=== PATIENT | male | born 1965 | race Caucasian/White ===

== ENCOUNTER 2018-10-20 14:54 | Observation (INO) ==
--- NOTE | 2018-10-20 16:13 | Emergency Department Note ---
Disposition Clinical Impression: Deep vein thrombosis of lower extremity Qualifiers: Affected thrombotic vein of extremity: unspecified vein of extremity Chronicity: acute Laterality: left Qualified Code(s): I82.402 - Acute embolism and thrombosis of unspecified deep veins of left lower extremity Disposition: Admitted As Inpatient Condition: Good Time of Disposition: 18:01 Extremity Problem HPI - General Chief complaint: ED Extremity Problem,Nontraumatic Stated complaint: DVT Time Seen by Provider: 10/20/18 15:05 Source: patient, family Limitations: no limitations Nursing Notes Reviewed: Yes Vital Signs Reviewed: Yes - History of Present Illness HPI Narrative: 53-year-old male history of diabetes presents emergency department with left leg swelling. He reports over the weekend past 3 days, he noticed increased swelling to his left leg. He had a knee surgery performed earlier this year and last week return from a plane ride from [place]. An outpatient ultrasound was performed which showed left leg deep vein thrombosis. He was sent here from his orthopedic surgeon to be evaluated and possible admission. He denies history of blood clots and malignancy. He denies any fever, chest pain, shortness of breath, abdominal pain nausea vomiting. He denies any G.I. bleed symptoms such as bloody stool, black tarry stool, hemoptysis or hematemesis. Pt Subjective Complaint: extremity pain, extremity swelling Pain Scale: 3 - Related Data Home Medications Medication Instructions Recorded Confirmed Insulin NPH Hum/Reg Insulin Hm 40 unit SQ BID 10/20/18 10/20/18 [Humulin 70-30 Vial] Lisinopril [Zestril] 40 mg PO DAILY 10/20/18 10/20/18 Meloxicam [Mobic] 7.5 mg PO BID 10/20/18 10/20/18 Metformin HCl 250 mg PO BID 10/20/18 10/20/18 Allergies Allergy/AdvReac Type Severity Reaction Status Date / Time No Known Allergies Allergy Verified 08/27/16 10:43 All systems ED: reviewed and negative except as stated. Review of Systems: As Per HPI Constitutional: Denies: fever ENT ED: Denies: congestion Cardiovascular: Denies: chest pain Respiratory: Denies: cough, dyspnea Gastrointestinal: Denies: abdominal pain, nausea, vomiting Genitourinary: Denies: dysuria Musculoskeletal: Reports: arthralgia. Denies: back pain Integumentary: Denies: rash, abrasion Neurological: Denies: headache, weakness, numbness Psychiatric: Denies: anxiety Endocrine: Reports: fatigue Past Medical History - Past Medical History Attestation: Yes The following information was validated with the patient. Source: patient Medical history: Reports: diabetes, hyperlipidemia, hypertension Psychiatric history: Reports: no psych history - Social History Smoking Status: Never smoker Smokeless Tobacco Status: Yes Alcohol use: Reports: occasionally Drug use: Reports: none Physical Exam - General Limitations: no limitations General appearance: alert, in no apparent distress - Head Head exam: atraumatic, normocephalic, normal inspection - Eye Eye exam: Present: normal appearance, PERRL, EOMI - ENT ENT exam: normal exam, normal oropharynx, mucous membranes moist - Neck Neck exam: Present: normal inspection, full ROM, trachea midline - Chest Chest inspection: Present: normal inspection, symmetric chest wall rise - Respiratory Respiratory exam: Present: normal lung sounds bilaterally - Cardiovascular Cardiovascular exam: Present: regular rate, normal rhythm, normal heart sounds. Absent: systolic murmur, diastolic murmur - Expanded Cardiovascular Exam Peripheral pulses: 1+: dorsalis pedis (L), 2+: radial (R), radial (L), dorsalis pedis (R) - Abdominal Exam Abdominal exam: Present: soft, Non-Tender, normal bowel sounds. Absent: tenderness, distention, guarding, rebound, rigidity - Extremities Exam Extremities exam: Present: full ROM, pedal edema (Left leg), calf tenderness, other (Asymmetrical swelling to the left lower leg). Absent: tenderness - Back Exam Back exam: Present: normal inspection, full ROM. Absent: tenderness - Neurological Exam Neurological exam: Present: alert, oriented X3 - Psychiatric Psychiatric exam: Present: normal affect, normal mood - Skin Skin exam: Present: warm, dry, intact, normal color. Absent: rash, cyanosis, diaphoresis Course Course Narrative: Review of the patient Doppler ultrasound there is extensive acute thrombus extending from the greater saphenous up to the distal iliac. There is no evidence of phelgmasia alba or dolens. Will check some basic labs in consideration for outpatient treatment for the deep vein thrombosis. He has no respiratory symptoms and does not warrant CT imaging at this time to evaluate for pulmonary embolism. - Reevaluation(s) Reevaluation #1: Patient has some underlying renal insufficiency that appears new. Will initiate Eliquis and admit with recommendation from vascular surgery to ensure improve ment and monitoring of his symptoms. Impression is deep vein thrombosis. - Consultations Consultation #1: Spoke with the patient's primary care provider Dr. Rea who is familiar with the patient and prefers Eliquis for anticoagulation. We will touch base with the vascular surgeon in terms of the extensive nature of the acute thrombus. If he is stable for discharge home he will follow up with his primary care provider at his request. He has a scheduled appointment next Saturday at 9:30 AM. Time: 16:33 Consultation #2: Discuss the findings with the on-call vascular surgeon Dr. Casillas who agrees th at this is an extensive acute thrombus. States it would not be unreasonable to admit the patient to evaluate for symptom improvement. After discussion with the primary care provider Eliquis would be an appropriate medication. Patient continues to have good capillary refill and distal pulses in the left foot. Time: 17:25 Consultation #3: Spoke with on-call hospitalist maria isabel Ly to admit for DVT. No further orders at this time Time: 17:53 Vital Signs Temperature 98.6 F 10/20/18 15:07 Pulse Rate 93 10/20/18 15:07 Respiratory Rate 16 10/20/18 15:07 Blood Pressure 94/62 10/20/18 15:07 O2 Sat by Pulse Oximetry 97 10/20/18 15:07 Temperature 98.6 F 10/20/18 15:18 Pulse Rate 87 10/20/18 16:25 Respiratory Rate 12 10/20/18 16:25 Blood Pressure 104/74 10/20/18 16:25 O2 Sat by Pulse Oximetry 97 10/20/18 16:25 Oxygen Delivery Oxygen Delivery Room Air Extremity Problem, Nontraumati - MDM Narrative Medical decision making narrative: Patient was discussed with my attending physician who agrees with ED management and final disposition. They independently evaluated the patient. Please refer to their attestation to this encounter for additional information. This note was generated by [employer] voice recognition software and as a result grammatical or spelling errors may occur using this program. - Medical Records Medical records reviewed: Yes I reviewed the patient's medical records. - Lab Data Lab results reviewed: Yes I reviewed the patient's lab results. Result diagrams: 10/20/18 16:15 10/20/18 16:15 Lab Results 10/20/18 10/20/18 10/20/18 Range/Units 16:15 16:15 16:15 WBC 12.3 H (4.3-11.1) K/mcL RBC 4.46 (4.19-5.50) M/mcL Hgb 13.9 (12.9-16.9) g/dL Hct 41.3 (37.5-50.1) % MCV 92.6 (83.0-100.0) fL MCH 31.2 (28.0-33.3) pg MCHC 33.7 (31.6-35.5) g/dL RDW 12.2 (11.5-14.5) % Plt Count 196 (140-400) K/mcL MPV 9.1 L (9.4-12.4) fL Immature Gran % 2.0 (0-4) % Seg Neutrophils % 66.4 % Lymphocytes % 19.0 % Monocytes % 10.5 % Eosinophils % 1.5 % Basophils % 0.6 % Neutrophils # 8.2 (1.6-8.9) K/mcL Lymphocytes # 2.3 (0.6-4.6) K/mcL Monocytes # 1.3 (0.0-1.3) K/mcL Eosinophils # 0.2 (0.0-0.6) K/mcL Basophils # 0.1 (0.0-0.2) K/mcL PT 11.3 (9.4-12.1) Seconds INR 1.0 APTT 26.5 (26.0-36.0) Seconds Sodium 137 (136-145) mEq/L Potassium 4.2 (3.5-5.1) mEq/L Chloride 105 (98-107) mEq/L Carbon Dioxide 25 (23-29) mEq/L BUN 29 H (6-20) mg/dL Creatinine 1.76 H (0.70-1.30) mg/dL Est GFR ( Amer) 49 L (> 60) Est GFR (Non-Af Amer) 40 L (> 60) BUN/Creatinine Ratio 16 (6-26) Glucose 135 H (70-105) mg/dL Calculated Osmolality 292 (280-300) Calcium 9.3 (8.6-10.3) mg/dL - Radiology Data Radiology results reviewed: Yes I reviewed the patient's radiology results. LE Venous Duplex Patient Name: Cabrera Nava Order Number: [id number] Procedure Date: 10/20/2018 Date: 1965 Age: 53 yrs Gender: Male Location: [facility] OP Room #: Accounting Professor: Lila Evans RDCS, ZOYA Referring MD: DO Cari Godinez MD: Jordan Monge MD , FACS Primary Indications: Left Leg Swelling Secondary Indications: Risk Factors Yes/No Hx of DVT No Anticoagulants No Trauma to Veins No Impressions: Lower extremity abnormal deep exam: left iliac through superficial femoral vein demonstrates acute thrombosis. Lower extremity abnormal superficial exam: left great saphenousvein demonstrates acute thrombosis. Right lower extremity: normal contralateral exam. Recommendations: After imaging the patient was admitted to the hospital. Test completed on 10/20/2018 at 2:14:00 pm. Critical findings reported to Yadira Graves LPN by phone at 2:16:00 pm on 10/20/2018 by Lila Evans RDCS, RVT. Findings Venous Duplex Results: Right: Venous imaging of the lower extremity reveals full patency and normal vessel compressibility of the right common femoral. Doppler signals in the evaluated veins were normal. Left: Venous imaging of the lower extremity reveals full patency and normal vessel compressibility of the left popliteal, left posterior tibial, left peroneal and left lesser saphenous. Doppler signals in the evaluated veins were normal. There is an acute occlusive thrombus seen in the left distal iliac. It demonstrates an incompressible vein. Flow was absent and it did not augment. There is an acute occlusive thrombus seen in the left common femoral. It demonstrates an incompressible vein. Flow was absent and it did not augment. There is an acute occlusive thrombus seen in the left proximal superficial femoral. It demonstrates an incompressible vein. Flow was absent and it did not augment. There is an acute occlusive thrombus seen in the left great saphenous. It demonstrates an incompressible vein. Flow was absent and it did not augment. Prior Study: No prior study available for comparison. After imaging the patient was admitted to the hospital. Test completed on 10/20/2018 at 2:14:00 pm. Critical findings reported to Yadira Graves LPN by phone at 2:16:00 pm on 10/20/2018 by Lila Evans RDCS, RVT. Lower Extremity Venous Duplex Side Vein Compress Spontaneous Flow Augment Diameter (cm) Depth (cm) Left Distal Iliac None no Absent no Left Common Femoral None no Absent no Left Superficial Femoral None no Absent no Left Popliteal Normal Yes Phasic Yes Left Posterior Tibial Normal Yes Phasic Yes Left Peroneal Normal Yes Phasic Yes Left Great Saphenous None no Absent no Left Lesser Saphenous Normal Yes Phasic Yes Right Common Femoral Normal Yes Phasic Yes Updated by Jordan Monge MD, FACS on 10/20/2018 3:16:13 PM Jordan Monge MD electronically signed on 10/20/2018 3:16:36 PM with status of Final Attestation Statement - Attestation Attestation: I, Cabrera Lai DO, examined this patient [id number] and my medical decision-making was reviewed with Asael Genao DO , Resident Physician. I agree with the documented findings, disposition and treatment plan as described except to the extent set forth below. Please see my progress notes for details.
--- NOTE | 2018-10-20 16:25 | Emergency Department Note ---
Disposition Clinical Impression: Deep vein thrombosis of lower extremity Disposition: Admitted As Inpatient Condition: Good Referrals: Deb Perry MD [Primary Care Provider] - Time of Disposition: 17:26 General Adult HPI - General Chief complaint: ED Extremity Problem,Nontraumatic Stated complaint: DVT Time Seen by Provider: 10/20/18 15:05 Source: patient, family Limitations: no limitations - History of Present Illness Pain Scale: 3 - Related Data Home Medications Medication Instructions Recorded Confirmed Insulin NPH Hum/Reg Insulin Hm 40 unit SQ BID 10/20/18 10/20/18 [Humulin 70-30 Vial] Lisinopril [Zestril] 40 mg PO DAILY 10/20/18 10/20/18 Meloxicam [Mobic] 7.5 mg PO BID 10/20/18 10/20/18 Metformin HCl 250 mg PO BID 10/20/18 10/20/18 Allergies Allergy/AdvReac Type Severity Reaction Status Date / Time No Known Allergies Allergy Verified 08/27/16 10:43 Past Medical History - Past Medical History Medical history: Reports: diabetes, hyperlipidemia, hypertension Psychiatric history: Reports: no psych history - Social History Smoking Status: Never smoker Smokeless Tobacco Status: Yes Alcohol use: Reports: occasionally Drug use: Reports: none Physical Exam - General Limitations: no limitations General appearance: alert Course Vital Signs Temperature 98.6 F 10/20/18 15:07 Pulse Rate 93 10/20/18 15:07 Respiratory Rate 16 10/20/18 15:07 Blood Pressure 94/62 10/20/18 15:07 O2 Sat by Pulse Oximetry 97 10/20/18 15:07 Temperature 98.6 F 10/20/18 15:18 Pulse Rate 99 10/20/18 15:18 Respiratory Rate 16 10/20/18 15:18 Blood Pressure 90/67 10/20/18 15:18 O2 Sat by Pulse Oximetry 98 10/20/18 15:18 Oxygen Delivery Oxygen Delivery Room Air Attestation Statement - Attestation Attestation: I, Cabrera Lai DO, examined this patient [id number] and my medical decision-making was reviewed with Asael Genao DO , Resident Physician. I agree with the documented findings, disposition and treatment plan as described except to the extent set forth below. Please see my progress notes for details. 53-year-old male presents to the emergency room for evaluation of left lower extremity swelling from the hip down to the foot. Patient has been noticing the symptoms will last several days over a week. He was seen by orthopedic physician had an x-ray ordered as well as a Doppler study. The Doppler study was positive for DVT. The orthopedic physician did not have the ability to review the imaging did discuss possible admission versus anticoagulation therapy. Patient on arrival here is denying chest pain, shortness of breath, nausea vomiting or diarrhea. Denies any fevers or chills. Denies any falls trauma or injury. He has never had anything like this before. He does stand for extended periods of time at work. The reason that he noticed the swelling is that over the last couple days while he was at work the pain was progressively worse throughout the day the longer he stood. Patient does have what appears to be superficial femoral DVT along with greater saphenous vein involvement extending up into the common femoral vein just distal to the iliacs. Discussion was had with the on-call vascular surgeon Dr. Casillas for recommendations considering the size of the clot. He felt that the patient could either discharge home at their discretion or could be admitted for continued medical management and observation. We will collect basic labs here. Patient will be provided with first dose of Eliquis. We will continue to monitor closely. Patient is otherwise in no distress outside of the swelling. Physical exam is otherwise unremarkable. Patient has clear lungs heart is regular. Abdomen is soft. He does have swelling from the hip down to the foot. He has palpable DP and PT pulses that are symmetrical bilaterally. No acute signs of occlusive related etiology at this time. Patient will be admitted once the laboratory workup is established. See detailed documentation of the physical exam, medical intervention, medical decision-making and disposition in the resident physician's note. 1715 Patient is electively decided to be admitted to the hospital. First dose of Eliquis will be given with attempted bridging patient for home. Observation status will be completed to monitor the patient Dr. Peterson reviewed the case and agreed with the treatment course. We also contacted the primary care provider Dr. Khan and she will follow-up with the patient on Saturday of next week. Patient will be admitted for continuation of care. No other acute issues at this time. Patient will be monitored here in the emergency room until admission process has been established patient does have new renal insufficiency and will be provided with fluid hydration while here in the hospital
[2018-10-20 16:27] LABS: Basophils # 0.1 K/mcL (0.0-0.2); Basophils % 0.6 %; Eosinophils # 0.2 K/mcL (0.0-0.6); Eosinophils % 1.5 %; Hematocrit 41.3 % (37.5-50.1); Hemoglobin 13.9 g/dL (12.9-16.9); Lymphocytes # 2.3 K/mcL (0.6-4.6); Mean Corpuscular HGB Conc 33.7 g/dL (31.6-35.5); Mean Corpuscular Hemoglobin 31.2 pg (28.0-33.3); Mean Corpuscular Volume 92.6 fL (83.0-100.0); Mean Platelet Volume 9.1 fL (9.4-12.4); Monocytes # 1.3 K/mcL (0.0-1.3); Monocytes % 10.5 %; Neutrophils # 8.2 K/mcL (1.6-8.9); Platelet Count 196 K/mcL (140-400); Red Blood Count 4.46 M/mcL (4.19-5.50); Red Cell Distribution Width 12.2 % (11.5-14.5); Segmented Neutrophils % 66.4 %
[2018-10-20 16:35] LABS: Prothrombin Time 11.3 Seconds (9.4-12.1)
[2018-10-20 16:37] LABS: Activated Partial Thrombo Time 26.5 Seconds (26.0-36.0)
[2018-10-20 16:44] LABS: Calcium 9.3 mg/dL (8.6-10.3); Potassium 4.2 mEq/L (3.5-5.1)
[2018-10-20] MEDS ORDERED: Apixaban 5 MG TABLET PO ONE (17:16)
[2018-10-20 17:28] LABS: Heparin anti-factor XA UFH 0.04 IU/mL (0.30-0.70)
[2018-10-20] MEDS: 0.9 % Sodium Chloride 1,000 ML IVC SCH (17:44)
[2018-10-20] MEDS ORDERED: *HR* HYDROcodone/Acet 5/325 mg TABLET PO ONE (18:01)
[2018-10-20] MEDS ORDERED: Naloxone 0.4 MG/ML INJ IVP PRN (18:07)
[2018-10-20] MEDS ORDERED: *HR* HYDROcodone/Acet 5/325 mg TABLET PO PRN (18:10)
--- NOTE | 2018-10-20 18:17 | Internal Med History&Physical ---
Date of Encounter: 10/20/18 Time of Encounter: 18:13 Internal Medicine - H&P: HPI Chief complaint: LLE swelling, pain and Confirmed dx of DVT Admitted From: Home Plans for Post Hospital Care: Home History of present illness: Mr. Nava is a 53 year old male with a PMH of HTN, HLD, & DM. He presents today to [facility] with LLE swelling and mild pain x 3 days. He had a venous doppler yesterday which revealed an extensive DVT. He admits to recent airline travel. Denies any leg trauma, malignancy, h/o DVT's or clotting disorders. Additionally, he denies fevers, chills, dyspnea, chest pain, abdominal pain, N/V/D, hemoptysis, hematemesis, weight-loss, night sweats or fatigue. He has been taking NSAIDS BID PRN for discomfort. Workup in the ED reveals and LUISITO as well with a Scr OF 1.76; no prior h/o CKD. He is being admitted overnight to monitor given the extensive clot burden. Past Med Surg Social Fam HX - Past Medical History Medical history: diabetes, hyperlipidemia, hypertension Psychiatric history: no psych history - Past Surgical History Additional surgical history: fx jaw repair. hemorrhoid. L knee April 2018 - Social History Smoking Status: Never smoker Smokeless Tobacco Status: Yes Alcohol use: occasionally Drug use: none - Family History Father Hx Family Cardiac Disorders: Yes Internal Medicine - H&P: Meds Insulin NPH Hum/Reg Insulin Hm [Humulin 70-30 Vial] 40 unit SQ BID 10/20/18 [History] Lisinopril [Zestril] 40 mg PO DAILY 10/20/18 [History] Meloxicam [Mobic] 7.5 mg PO BID 10/20/18 [History] Metformin HCl 250 mg PO BID 10/20/18 [History] Allergy/AdvReac Type Severity Reaction Status Date / Time No Known Allergies Allergy Verified 08/27/16 10:43 All Systems PM: A 10-system review of systems was performed and is negative for pertinent findings except as documented above in the HPI. Review of systems: REVIEW OF SYSTEMS GENERAL: Negative for any nausea, vomiting, fevers, chills, or weight loss. NEUROLOGIC: Negative for any blurry vision, blind spots, double vision, facial asymmetry, dysphagia, dysarthria, hemiparesis, hemisensory deficits, vertigo, ataxia. HEENT: Negative for any head trauma, neck trauma, neck stiffness, photophobia, p honophobia, sinusitis, rhinitis. CARDIAC: Negative for any chest pain, dyspnea on exertion, palpitations, irregular heartbeat. Positive for LLE swelling PULMONARY: Negative for any shortness of breath, wheezing, cough GASTROINTESTINAL: Negative for any abdominal pain, nausea, vomiting GENITOURINARY: Negative for any dysuria, hematuria, incontinence. INTEGUMENTARY: Negative for any rashes, cuts, insect bites. MUSCULOSKELETAL: LLE swelling and pain, LLE feels cool - Constitutional Vitals: Temp Pulse Resp BP Pulse Ox 98.6 F 87 12 104/74 97 10/20/18 15:18 10/20/18 16:25 10/20/18 16:25 10/20/18 16:25 10/20/18 16:25 General appearance: Present: A&O X 3 Exam: PHYSICAL EXAMINATION: GENERAL: NAD, and O 3 HEENT: Head is normocephalic and atraumatic. PERRLA LUNGS: Clear to auscultation B/L AP and L. HEART: RRR, S1, S2 without murmurs, rubs or gallops. ABDOMEN: Soft, nontender, and nondistended. Positive bowel sounds. No hepatosplenomegaly was noted. EXTREMITIES: RLE WNL, LLE Without any cyanosis, distal circulation remains intact, blanchable with good cap refill; LLE is swollen and non pitting and cool to the touch NEUROLOGIC: Cranial nerves II through XII are grossly intact. SKIN: No ulceration or induration present. Internal Med - H&P Results - Labs CBC & Chem 7: 10/20/18 16:15 10/20/18 16:15 Labs: Short CBC 10/20/18 Range/Units 16:15 WBC 12.3 H (4.3-11.1) K/mcL Hgb 13.9 (12.9-16.9) g/dL Hct 41.3 (37.5-50.1) % Plt Count 196 (140-400) K/mcL Neutrophils # 8.2 (1.6-8.9) K/mcL BMP 10/20/18 16:15 Sodium 137 Potassium 4.2 Chloride 105 Carbon Dioxide 25 BUN 29 H Creatinine 1.76 H Glucose 135 H Calcium 9.3 - Impressions Left: Venous imaging of the lower extremity reveals full patency and normal vessel compressibility of the left popliteal, left posterior tibial, left peroneal and left lesser saphenous. Doppler signals in the evaluated veins were normal. There is an acute occlusive thrombus seen in the left distal iliac. It demonstrates an incompressible vein. Flow was absent and it did not augment. There is an acute occlusive thrombus seen in the left common femoral. It demonstrates an incompressible vein. Flow was absent and it did not augment. There is an acute occlusive thrombus seen in the left proximal superficial femoral. It demonstrates an incompressible vein. Flow was absent and it did not augment. There is an acute occlusive thrombus seen in the left great saphenous. It demonstrates an incompressible vein. Flow was absent and it did not augment. - Assessment and plan (1) Deep vein thrombosis of lower extremity Current Visit: Yes Status: Acute Assessment and plan: 3 day history of left lower extremity swelling and mild pain evaluated outpatient with venous doppler with findings of extensive DVT; findings as follows No prior h/o DVT; He admits to recent travel with flights to and from [place] Start on Eliquis 10mg BID; will need a total of 10mg BID x7 days then 5MG thereafter Given extensive nature of DVT admit for observation for monitoring Left: Venous imaging of the lower extremity reveals full patency and normal vessel compressibility of the left popliteal, left posterior tibial, left peroneal and left lesser saphenous. Doppler signals in the evaluated veins were normal. There is an acute occlusive thrombus seen in the left distal iliac. It demonstrates an incompressible vein. Flow was absent and it did not augment. There is an acute occlusive thrombus seen in the left common femoral. It demonstrates an incompressible vein. Flow was absent and it did not augment. There is an acute occlusive thrombus seen in the left proximal superficial femoral. It demonstrates an incompressible vein. Flow was absent and it did not augment. There is an acute occlusive thrombus seen in the left great saphenous. It demonstrates an incompressible vein. Flow was absent and it did not augment. Qualifiers: Affected thrombotic vein of extremity: unspecified vein of extremity Chronicity: acute Laterality: left Qualified Code(s): I82.402 - Acute embolism and thrombosis of unspecified deep veins of left lower extremity (2) Diabetes Current Visit: Yes Status: Acute Assessment and plan: Continue home insulin 70/30 BID and metformin AC/HS FSBG Diabetic diet Qualifiers: Diabetes mellitus type: type 2 Diabetes mellitus alf insulin use: with alf use Diabetes mellitus complication status: with unspecified complications Qualified Code(s): E11.8 - Type 2 diabetes mellitus with unspecified complications; Z79.4 - half-way (current) use of insulin (3) HTN (hypertension) Current Visit: Yes Status: Acute Assessment and plan: Reports a h/o HTN takes IRVING I at home; holding with LUISITO BP stable, monitor Qualifiers: Hypertension type: unspecified Qualified Code(s): I10 - Essential (primary) hypertension (4) Acute kidney injury Current Visit: Yes Status: Acute Assessment and plan: no prior h/o CKD presented with LUISITO etiology unclear holding NSAIDS, and IRVING I 0.9% NS at 125ml/hr x3 liters avoid nephrotoxins monitor renal function - Time Spent With Patient Total time spent is greater than 50% in coordination of care (as documented) at patient's floor/unit and/or counseling patient: less than 15 minutes
[2018-10-20] MEDS: *HR* Metformin 500 MG TABLET PO SCH (21:36)
[2018-10-21] MEDS: 0.9 % Sodium Chloride 1,000 ML IVC SCH (01:44)
[2018-10-21 04:29] LABS: Hematocrit 37.2 % (37.5-50.1); Hemoglobin 12.6 g/dL (12.9-16.9); Mean Corpuscular HGB Conc 33.9 g/dL (31.6-35.5); Mean Corpuscular Hemoglobin 31.6 pg (28.0-33.3); Mean Corpuscular Volume 93.2 fL (83.0-100.0); Platelet Count 162 K/mcL (140-400); Red Blood Count 3.99 M/mcL (4.19-5.50); Red Cell Distribution Width 12.3 % (11.5-14.5)
[2018-10-21 04:46] LABS: BUN/Creatinine Ratio 25 (6-26); Blood Urea Nitrogen 29 mg/dL (6-20); Calcium 8.6 mg/dL (8.6-10.3); Carbon Dioxide 24 mEq/L (23-29); Chloride 107 mEq/L (98-107); Glucose 179 mg/dL (70-105); Osmolality,Calculated 292 (280-300); Potassium 4.4 mEq/L (3.5-5.1); Sodium 136 mEq/L (136-145); eGFR For Non-African Americans > 60 (> 60)
[2018-10-21] MEDS ORDERED: Insulin NPH/REG 70/30 100 UNIT/ML (x5UNIT) SQ SCH (07:30)
[2018-10-21 07:56] VITALS: BP 128/86
[2018-10-21] MEDS ORDERED: Apixaban 5 MG TABLET PO SCH (09:00)
[2018-10-21] MEDS: *HR* Metformin 500 MG TABLET PO SCH (09:17)
--- NOTE | 2018-10-21 10:10 | Discharge Summary ---
- NOTES TO OUTPATIENT PROVIDER Notes to Outpatient Provider: Patient with history of left knee arthroscopic and meniscectomy in 05/2018 and recent flights to [place] was admitted for left leg DVT. Also had LUISITO ?pre-renal vs. NSAIDS-use. Improved with IVF. Will treat it as provoked DVT and will be discharged home on Eliquis. Orders not resulted at time of discharge: Pending orders 10/22/18 04:00 Creatinine Routine Date of Encounter: 10/21/18 Time of Encounter: 07:30 - Discharge Diagnosis (1) Deep vein thrombosis of lower extremity Priority: Primary Status: Acute Qualifiers: Affected thrombotic vein of extremity: unspecified vein of extremity Chronicity: acute Laterality: left Qualified Code(s): I82.402 - Acute embolism and thrombosis of unspecified deep veins of left lower extremity (2) HTN (hypertension) Priority: Secondary Status: Acute Qualifiers: Hypertension type: unspecified Qualified Code(s): I10 - Essential (primary) hypertension (3) Diabetes Priority: Secondary Status: Acute Qualifiers: Diabetes mellitus type: type 2 Diabetes mellitus chcf insulin use: with chcf use Diabetes mellitus complication status: with unspecified complications Qualified Code(s): E11.8 - Type 2 diabetes mellitus with unspecified complications; Z79.4 - senior care (current) use of insulin (4) Acute kidney injury Priority: Secondary Status: Acute Hospital course: Mr. Nava is a 53 year old male with history of DM, HTN, left knee arthros copic and meniscectomy in 05/2018, who had recent flights to [place], was admitted for left leg DVT. Also had LUISITO ?pre-renal vs. NSAIDS-use. Improved with IVF. Will treat it as provoked DVT and will be discharged home on Eliquis. Patient was advised to return to the ED if leg swelling gets worse, or develop chest pain, shows of breath, or hemoptysis. Insurance coverage was verified prior to the discharge. Discharge discussed with: patient, nurse - Time Spent with Patient Total time spent providing and/or coordinating discharge services: 33 mins - Discharge Medications Prescriptions: Acetaminophen [Tylenol Arthritis] 650 mg PO Q6H #20 tablet.er Apixaban [Eliquis] 10 mg PO BID #60 tablet Home Medications: Insulin NPH Hum/Reg Insulin Hm [Humulin 70-30 Vial] 40 unit SQ BID 10/20/18 [History] Lisinopril [Zestril] 40 mg PO DAILY 10/20/18 [History] Metformin HCl 250 mg PO BID 10/20/18 [History] Acetaminophen [Tylenol Arthritis] 650 mg PO Q6H #20 tablet.er 10/21/18 [Rx] Apixaban [Eliquis] 10 mg PO BID #60 tablet 10/21/18 [Rx] Allergies/Adverse Reactions: Allergy/AdvReac Type Severity Reaction Status Date / Time No Known Allergies Allergy Verified 08/27/16 10:43 Date of admission: 10/20/18 17:34 Primary care physician: Deb Perry MD - Constitutional Vitals: Temp Pulse Resp BP Pulse Ox 98.3 F 79 18 128/86 98 10/21/18 07:54 10/21/18 07:54 10/21/18 07:54 10/21/18 07:54 10/21/18 07:54 General appearance: Present: A&O X 3 Exam: GENERAL: NAD LUNGS: Clear to auscultation HEART: RRR, S1, S2 without murmurs ABDOMEN: Soft, nontender, and nondistended. EXTREMITIES: LLE is swollen, mild pitting edema up to mid shins. NEUROLOGIC: Cranial nerves II through XII are grossly intact. SKIN: No ulceration or induration present. - Patient Status Disposition: Home, Self-Care Condition: Good Functional capacity at discharge: independent ambulation Overall status at discharge: patient is progressing back to baseline - Discharge Instructions Instructions: Deep Venous Thrombosis (DC), Diabetes Mellitus Type 2 in Adults (DC), Chronic Hypertension (DC) Follow Up With: Deb Perry MD [Primary Care Provider] - - Diet and Activity Activity: resume usual activities as tolerated Diet: diabetic diet
[2018-10-28] MEDS ORDERED: Apixaban 5 MG TABLET PO SCH (09:00)
== END 2018-10-21 12:40 | disposition home or self-care (01) ==
LOC: EMEROOARM 14:54 → 2ANU 14:54 → SUATTDRO 17:34 → 2ANU 19:39
PROVIDERS: ADMIT Internal Medicine; ATTEND Internal Medicine